=== PATIENT | female | born 1950 ===

== ENCOUNTER 2017-12-08 12:54 | Emergency (ER) | payer SELFPAY ==
[2017-12-08 13:09] VITALS: BP 107/72
--- NOTE | 2017-12-08 14:00 | UC ---
Oneal Helms Gabriel, scribed for Marko Aquino MD on 12/08/17 at 1329 . General HPI - HPI Summary HPI Summary: This patient is a 66 year old M presenting to [facility] requesting an Ambien refill. Pt lives in [place] and is visiting family and states it is against the law for the doctor to send a script across state borders. Pt has her script bottle presently. She has been on the med for 4 years. - History of Current Complaint Chief Complaint: UCMedRefill Stated Complaint: REFILL ON MEDS Time Seen by Provider: 12/08/17 13:27 Hx Obtained From: Patient Onset/Duration: Still Present Timing: Constant Current Severity: None Pain Intensity: 0 Associated Signs & Symptoms: Positive: Other - med refill - Allergy/Home Medications Allergies/Adverse Reactions: Allergies Allergy/AdvReac Type Severity Reaction Status Date / Time No Known Allergies Allergy Verified 12/08/17 13:09 Home Medications: Home Medications Levothyroxine TAB* [Synthroid 100 MCG TAB*] 100 mcg PO DAILY 12/08/17 [History Confirmed 12/08/17] Zolpidem TAB* [Ambien*] 10 mg PO DAILY 12/08/17 [History Confirmed 12/08/17] PMH/Surg Hx/FS Hx/Imm Hx Other History Of: Negative For: Hepatitis C, Anticoagulant Therapy - Surgical History Surgical History: None - Family History Known Family History: Negative: Hypertension, Diabetes, Renal Disease, Respiratory Disease, Seizure Disorder - Social History Alcohol Use: Occasionally Substance Use Type: None Smoking Status (MU): Never Smoked Tobacco Review of Systems Constitutional: Negative - fever, Other - trouble sleeping Skin: Negative Eyes: Negative ENT: Negative Respiratory: Negative Cardiovascular: Negative Gastrointestinal: Negative Genitourinary: Negative Motor: Negative Neurovascular: Negative Musculoskeletal: Negative Neurological: Negative Psychological: Negative All Other Systems Reviewed And Are Negative: Yes Physical Exam - Summary Physical Exam Summary: General: well-appearing, no pain distress Skin: warm, color reflects adequate perfusion, dry Head: normal Eyes: EOMI, EMMETT ENT: normal Neck: supple, nontender Respiratory: CTA, breath sounds present Cardiovascular: RRR Abdomen: soft, nontender Bowel: present Musculoskeletal: normal, strength/ROM intact Neurological: sensory/motor intact, A&O x3 Psychological: affect/mood appropriate Triage Information Reviewed: Yes Vital Signs: Initial Vital Signs Temp 98 F 12/08/17 13:07 Pulse 83 12/08/17 13:07 Resp 16 12/08/17 13:07 BP 107/72 12/08/17 13:07 Pulse Ox 100 12/08/17 13:07 Vital Signs Reviewed: Yes Course/Dx - Course Course Of Treatment: CHECKED ISTOP WITHOUT ANY CONCERNING RESULTS. PATIENT HAS HER EMPTY BOTTLE WITH ONE REFILL STILL REMAINING [facility] - Differential Dx - Multi-Symptom Provider Diagnoses: INSOMNIA Discharge - Sign-Out/Discharge Documenting (check all that apply): Discharge/Admit/Transfer - Discharge Plan Condition: Stable Disposition: HOME Prescriptions: Zolpidem TAB* [Ambien TAB*] 10 mg PO BEDTIME PRN #30 tab MDD 1 PRN Reason: Insomnia Patient Education Materials: Insomnia (ED) Referrals: [facility] REFERRAL [Outside] Additional Instructions: FOLLOW UP WITH YOUR DOCTOR. GET RECHECKED FOR ANY WORSENING OF YOUR CONDITION OR QUESTIONS OR CONCERNS. - Billing Disposition and Condition Condition: STABLE Disposition: Home The documentation as recorded by the Oneal davis Gabriel accurately reflects the service I personally performed and the decisions made by me, Marko Aquino MD.
== END 2017-12-08 13:46 | disposition home or self-care (01) ==
LOC: UCEAST 12:54
DX: G47.00 Insomnia, unspecified (principal); Z76.0 Encounter for issue of repeat prescription
CPT/HCPCS: 99202; G0463